=== PATIENT | female | born 1930 | race Caucasian/White ===

== ENCOUNTER 2017-03-28 05:31 | Observation (INO) | payer OTHER, MEDICARE ==
[~2017-03-28] VITALS: Ht 154.9 cm; Wt 49.0 kg
[~2017-03-28 05:31] MED LIST: BENICAR20 MG PO; COMBIGAN O20 DROP/5 BOTH EYES; ELIQUIS2.5 MG PO; FLEXERIL10 MG PO; FOSAMAX70 MG PO; MEDROL DOSEPAK4 MG PO; NORCO 5/3251 TABLET PO; NORVASC5 MG PO; OYSTERCAL-D 501 EACH PO; SIMVASTATIN20 MG PO
[2017-03-28 06:06] LABS: HEMATOCRIT 40.1 % (36.0-46.0); MCH 32.1 PG (29.0-34.0); MCHC 33.2 G/DL (30.0-36.0); MCV 96.9 FL (83-99); MEAN PLAT.VOLUME 10.9 uM^3 (9.5-12.4); PLATELET COUNT 189 K/uL (156-360); RBC DIS.WIDTH-CV 13.9 % (11.8-14.6); RBC DIS.WIDTH-SD 49.3 % (39-53); RED BLOOD COUNT 4.14 M/uL (3.80-5.20); WHITE BLOOD COUNT 6.1 K/uL (4.1-10.2)
[2017-03-28 06:11] LABS: PROTHROMBIN TIME 11.3 SEC (10.2-12.9)
[2017-03-28 06:14] LABS: CHLORIDE 105 mEq/L (99-109); POTASSIUM 3.3 mEq/L (3.7-5.4); PTT 31.6 SEC (25-37); SODIUM 142 mEq/L (136-147)
[2017-03-28 06:17] LABS: GLUCOSE 102 mg/dL (70-99)
[2017-03-28 06:18] LABS: ANION GAP 11 MEQ/L (2-14)
[2017-03-28 06:19] LABS: TOTAL BILIRUBIN 0.8 mg/dL (0.0-1.0)
[2017-03-28 06:20] LABS: ALKALINE PHOSPHATASE 50 IU/L (3-129)
[2017-03-28 06:21] LABS: GFR ESTIMATE (CALCULATED) > 59 mL/min/
[2017-03-28 06:22] LABS: DIRECT BILIRUBIN 0.2 mg/dL (0.0-0.3); UREA NITROGEN (BUN) 18 mg/dL (9-23)
[2017-03-28 06:24] LABS: LIPASE 22 U/L (1.0-51.0)
[2017-03-28 06:27] LABS: TROP-I INTERPRETATION NEGATIVE; TROPONIN-I < 0.01 ng/mL (0.0-0.30)
[2017-03-28 08:31] VITALS: BP 177/71
[2017-03-28] MEDS ORDERED: DAILY VITAMIN1 EAC4 PO (09:01)
[2017-03-28 09:32] VITALS: BP 161/73
[2017-03-28 11:19] VITALS: BP 125/68
[2017-03-28 11:52] VITALS: BP 147/67
[2017-03-28 13:42] LABS: TROP-I INTERPRETATION NEGATIVE; TROPONIN-I 0.02 ng/mL (0.0-0.30)
[2017-03-28 16:12] VITALS: BP 137/67
[2017-03-28] MEDS ORDERED: ARICEPT5 MG PO (16:23)
[2017-03-28 18:40] LABS: TROP-I INTERPRETATION NEGATIVE; TROPONIN-I 0.01 ng/mL (0.0-0.30)
[2017-03-28 20:30] VITALS: BP 135/66
== END 2017-03-28 22:17 | disposition home or self-care (01) ==
LOC: EME → EDBD 05:31 → EDOF 07:46 → ENRESERV 07:54 → EDOF 07:56 → ENRESERV 08:21 → 5WEST 09:29
PROVIDERS: Emergency Medicine; Internal Medicine
DX: R07.9 Chest pain, unspecified (principal); I10 Essential (primary) hypertension; I48.0 Paroxysmal atrial fibrillation; Z79.01 Long term (current) use of anticoagulants; Z86.73 Personal history of transient ischemic attack (TIA), and cerebral infarction without residual deficits; I44.7 Left bundle-branch block, unspecified; E78.5 Hyperlipidemia, unspecified; M81.0 Age-related osteoporosis without current pathological fracture; Z85.828 Personal history of other malignant neoplasm of skin; R94.31 Abnormal electrocardiogram [ECG] [EKG]; E87.6 Hypokalemia
CPT/HCPCS: 71020; 76705; 80048; 80076; 83690; 83880; 84484; 85027; 85610; 85730; 93005; 99281; 99285; G0378; J2270; J2405; J7030

== ENCOUNTER 2018-01-10 20:37 | Emergency (ER) | payer OTHER, MEDICARE ==
[~2018-01-10] VITALS: Ht 152.4 cm; Wt 48.8 kg
[~2018-01-10 20:37] MED LIST changes: +ARICEPT5 MG PO; +DAILY VITAMIN1 EAC4 PO
[2018-01-10 21:07] LABS: HEMATOCRIT 41.7 % (36.0-46.0); HEMOGLOBIN 14.2 G/DL (11.9-15.5); MCH 32.9 PG (29.0-34.0); MCHC 34.1 G/DL (30.0-36.0); MCV 96.8 FL (83-99); PLATELET COUNT 239 K/uL (156-360); RBC DIS.WIDTH-CV 13.7 % (11.8-14.6); RBC DIS.WIDTH-SD 49.1 % (39-53); RED BLOOD COUNT 4.31 M/uL (3.80-5.20); WHITE BLOOD COUNT 8.1 K/uL (4.1-10.2)
[2018-01-10 21:13] LABS: APPEARANCE CLEAR ((CLEAR)); BILIRUBIN NEGATIVE; BLOOD SMALL; COLOR COLORLESS ((YELLOW)); GLUCOSE (STRIP) NEGATIVE; KETONES NEGATIVE; LEUKOCYTES TRACE; NITRITE NEGATIVE; PROTEIN (STRIP) NEGATIVE; SPECIFIC GRAVITY 1.003 (1.000-1.030); UROBILINOGEN 0.2 MG/DL (0.2-1.0)
[2018-01-10 21:14] LABS: ALBUMIN 4.7 g/dL (3.2-4.8)
[2018-01-10 21:15] LABS: CHLORIDE 98 mEq/L (99-109); POTASSIUM 3.6 mEq/L (3.7-5.4); SODIUM 136 mEq/L (136-147)
[2018-01-10 21:16] LABS: BACTERIA RARE /HPF; EPITHELIAL CELLS NONE SEEN /HPF; MUCUS TRACE /LPF; RED BLOOD CELLS 0-5 /HPF (0-5); UCUL ADDED? NO; WHITE BLOOD CELLS 0-5 /HPF (0-5)
[2018-01-10 21:17] LABS: GLUCOSE 105 mg/dL (70-99); TOTAL PROTEIN 8.2 g/dL (6.4-8.3)
[2018-01-10 21:19] LABS: TOTAL BILIRUBIN 0.5 mg/dL (0.0-1.0)
[2018-01-10 21:20] LABS: ALKALINE PHOSPHATASE 57 IU/L (3-129)
[2018-01-10 21:21] LABS: GFR ESTIMATE (CALCULATED) 55 mL/min/
[2018-01-10 21:22] LABS: AST (GOT) 45 IU/L (2-34); UREA NITROGEN (BUN) 23 mg/dL (9-23)
[2018-01-10 21:23] LABS: ALT (GPT) 39 IU/L (3-49)
[2018-01-10 22:53] VITALS: BP 149/81
== END 2018-01-10 22:58 ==
LOC: EME 20:37
DX: I10 Essential (primary) hypertension (principal); I48.91 Unspecified atrial fibrillation; Z86.73 Personal history of transient ischemic attack (TIA), and cerebral infarction without residual deficits; E78.5 Hyperlipidemia, unspecified; Z88.8 Allergy status to other drugs, medicaments and biological substances
CPT/HCPCS: 80053; 81003; 85027; 99281; 99284